=== PATIENT | female | born 1995 | race Caucasian/White ===

== ENCOUNTER 2017-06-24 13:07 | Emergency (ER) | payer BC ==
[2017-06-24 14:39] VITALS: BP 119/66
--- NOTE | 2017-06-24 14:49 | UC ---
Eye Complaint HPI - HPI Summary HPI Summary: Left eye redness and discharge starting yesterday. Doesn't wear contacts. - History of Current Complaint Chief Complaint: UCEye Stated Complaint: EYE COMPLAINT Time Seen by Provider: 06/24/17 14:41 Hx Obtained From: Patient Hx Last Menstrual Period: 06/04/17 ?: No Onset/Duration: Sudden Onset, Lasting Days - 1, Worse Since - onset Timing: Constant Severity Initially: Mild Severity Currently: Mild Pain Intensity: 3 Character: Foreign Body Sensation Aggravating Factor(s): Blinking Alleviating Factor(s): Nothing Associated Signs And Symptoms: Positive: Drainage (Purulent), Swelling - Risk Factors Penetrating Injury Risk Factor: Negative Acute Glaucoma Risk Factors: Negative - Allergies/Home Medications Allergies/Adverse Reactions: Allergies Allergy/AdvReac Type Severity Reaction Status Date / Time No Known Allergies Allergy Verified 06/24/17 14:39 Home Medications: Home Medications Insulin Degludec [Tresiba Flextouch U-100] 100 unit SQ DAILY 06/24/17 [History Confirmed 06/24/17] Insulin LISPRO* [HumaLOG*] 0 units SUBCUT DIRECTED 06/24/17 [History Confirmed 06/24/17] PMH/Surg Hx/FS Hx/Imm Hx Endocrine History: Diabetes - Surgical History Surgical History: None - Family History Known Family History: Negative: Diabetes - Social History Occupation: Student Lives: Dormitory/Roommates Alcohol Use: Occasionally Substance Use Type: None Smoking Status (MU): Never Smoked Tobacco Have You Smoked in the Last Year: No Review of Systems Eyes: Drainage, Eye Redness Is Patient Immunocompromised?: No All Other Systems Reviewed And Are Negative: Yes Physical Exam Triage Information Reviewed: Yes Appearance: Well-Appearing, No Pain Distress, Well-Nourished Vital Signs: Initial Vital Signs Temp 98.8 F 06/24/17 14:32 Pulse 87 06/24/17 14:32 Resp 16 06/24/17 14:32 BP 119/66 06/24/17 14:32 Pulse Ox 100 06/24/17 14:32 Vital Signs Reviewed: Yes Eyes: Positive: Conjunctiva Inflamed - OS>OD, Discharge - OS ENT: Positive: Pharynx normal, TMs normal Neck exam: Normal Respiratory Exam: Normal Cardiovascular Exam: Normal Musculoskeletal Exam: Normal Neurological Exam: Normal Psychological Exam: Normal Skin Exam: Normal Eye Complaint Course/Dx - Differential Dx/Diagnosis Differential Diagnosis/HQI/PQRI: Conjunctivitis, Keratitis, Uveitis Provider Diagnoses: Viral conjunctivitis Discharge - Sign-Out/Discharge Documenting (check all that apply): Discharge/Admit/Transfer - Discharge Plan Condition: Stable Disposition: HOME Prescriptions: Erythromycin OPTH OINT* [Erythromycin 0.5% OPTH OINT*] 1 applic BOTH EYES TID # 7 gm Patient Education Materials: Conjunctivitis (ED), Erythromycin (Into the eye) Referrals: No Primary Care Phys,NOPCP [Primary Care Provider] - Additional Instructions: EYE OINTMENT USE: Wash hands. Place 1/4" strip across tip of finger. Pull lower lid down with the index finger and stabilize the ointment finger with the middle finger and scrape the ointment off on the lid. Pull the lid out and let go as you look down. - Billing Disposition and Condition Condition: STABLE Disposition: HOME
== END 2017-06-24 14:59 | disposition home or self-care (01) ==
LOC: UCCORT 13:07
DX: B30.9 Viral conjunctivitis, unspecified (principal); E11.9 Type 2 diabetes mellitus without complications; Z79.4 Long term (current) use of insulin
CPT/HCPCS: 99202; G0463